=== PATIENT | male | born 2000 | race Two or more races ===

== ENCOUNTER 2024-12-24 16:46 | Emergency (ER) | payer MEDICAID, SELFPAY ==
[2024-12-24 16:51] VITALS: BMI 23.5
--- NOTE | 2024-12-24 16:52 | XR_ITS ---
Examination: Foot, left, 3 views Technique: AP, oblique, lateral views foot, 3 views Date and time of exam: December 24, 2024 1706 hours INDICATIONS: Laceration to the left side of the ankle today, ankle pain FINDINGS: No foot fracture No opaque foreign bodies Significant bunion deformity Soft tissue defects medial ankle IMPRESSION: No opaque foreign body seen
--- NOTE | 2024-12-24 16:55 | XR_ITS ---
Examination: Tibia-Fibula, left , 2 views Technique: Tibia-fibula AP lateral 2 views Date and time of exam: December 24, 2024 1706 hours INDICATIONS: Laceration to the ankle today, ankle pain FINDINGS: Shaft of the tibia-fibula are intact No fracture Soft tissue defects medial and posterior ankle IMPRESSION: Negative for opaque foreign body
--- NOTE | 2024-12-24 16:55 | XR_ITS ---
EXAMINATION: Ankle, left 3 views . Technique: Ankle AP, oblique, lateral 3 views Date and time of exam: December 24, 2024 7006 hours INDICATIONS: Laceration to the ankle today, ankle pain. FINDINGS: Soft tissue defects medial posterior ankle No fracture No opaque foreign body detected IMPRESSION: No fracture No opaque foreign body seen
--- NOTE | 2024-12-24 17:01 | PD.EDWOUND ---
ED Wound/Laceration-RME/HPI General Chief Complaint: Wound/Laceration Stated Complaint: Laceration to left leg from saw Time Seen by Provider: 12/24/24 18:00 Arrival date/time: 12/24/24 16:46 Limitations: no limitations RME / HPI RME / HPI narrative: 24 year old male with no significant medical history presents to the ED for evaluation of a left ankle injury sustained during a chainsaw accident. Patient reports that while cutting firewood, the chainsaw slipped and struck his left ankle. He immediately wrapped a sweater around his leg and presented to the ER for evaluation. Upon arrival, the patient describes pain at the injury site and reports a numbness sensation in the toes, though he denies any loss of movement in the toes or foot. No other injuries are reported. Last tetanus received is unknown. Related Data Previous Rx's ?Medication ?Instructions ?Recorded diphenhydramine HCl 25 mg capsule 25 mg PO Q8H PRN allergic symptoms 12/27/20 (Benadryl) #30 caps albuterol sulfate 90 mcg/actuation 2 puff inhalation QID PRN 03/27/21 aerosol inhaler shortness of breath or wheezing #8.5 grams ibuprofen 600 mg tablet 600 mg PO QID #30 tabs 05/09/22 ibuprofen 600 mg tablet 600 mg PO Q6H PRN fever or pain 02/15/23 #30 tabs cephalexin 500 mg capsule 500 mg PO Q6H 7 days #28 caps 12/24/24 diclofenac sodium 75 mg 75 mg PO BID #10 tabs 12/24/24 tablet,delayed release Allergies Allergy/AdvReac Type Severity Reaction Status Date / Time No Known Allergies Allergy Verified 12/24/24 16:50 Review of Systems Review of Systems Systems Reviewed: All systems reviewed, normal except as documented Past Medical History Past Medical History CARDIAC: Negative Congestive Heart Failure RESPIRATORY: Negative Chronic Obstructive Pulmonary Disease (COPD) GENITOURINARY: Negative Renal Disease ENDOCRINE: Negative Diabetes Mellitus Type 1 or Diabetes Mellitus Type 2 Surgical History SURGICAL: Positive Abdominal Surgery (appendectomy) Social History SMOKING STATUS: Unknown if ever smoked SUBSTANCE USE: does not use ED Exam General Limitations: Present no limitations General appearance: Present alert Head Head exam: Present atraumatic and normocephalic Eye Eye exam: Present normal appearance, PERRL and EOMI ENT ENT exam: Present normal exam, normal oropharynx and mucous membranes moist Neck Neck exam: Present normal inspection, full ROM and trachea midline Chest Chest inspection: Present normal inspection and symmetric chest wall rise Respiratory Respiratory exam: Present normal lung sounds bilaterally Cardiovascular Cardiovascular exam: Present regular rate, normal rhythm and normal heart sounds Abdominal Exam Abdominal exam: Present soft and normal bowel sounds Extremities Exam Extremities exam: Present full ROM and other (large deep laceration to the left ankle at the medial aspect measuring 6cm, no active bleeding otherwise no other evidence of injury ) Back Exam Back exam: Present normal inspection and full ROM Neurological Exam Neurological exam: Present alert, oriented X3 and CN II-XII intact Psychiatric Psychiatric exam: Present normal affect and normal mood Skin Skin exam: Present warm, dry, intact and normal color Course Quality Measures none Orders Category Date Time Status Crutches .NOW Care 12/24/24 19:11 Completed XR ankle comp LT min 3V Stat Exams 12/24/24 16:55 Completed XR foot comp LT min 3V Stat Exams 12/24/24 16:52 Completed XR tibia fibula LT 2V Stat Exams 12/24/24 16:55 Completed Lidocaine 1% 20 ml [Xylocaine 1% 20 ML] Med 12/24/24 17:24 Discontinued 20 ml .ROUTE .STK-MED ONE Lidocaine 1% 20 ml [Xylocaine 1% 20 ML] Med 12/24/24 17:32 Discontinued 20 ml INFL X1 ONE Morphine Inj Med 12/24/24 16:50 Discontinued 8 mg IVP X1 ONE TET,DIP/PERT AC (Adult)-Tdap [Boostrix Adult (Tdap) Med 12/24/24 16:56 Discontinued Vacc] 0.5 ml IMI .ONCE ONE cefTRIAXone/D5w 1gm IV premix [Rocephin/D5w 1gm IV Med 12/24/24 16:57 Discontinued premix] 1 gm in 50 ml IV X1 Vital Signs Vital signs: Vital Signs Pulse Rate 85 12/24/24 17:10 Respiratory Rate 19 12/24/24 17:10 Blood Pressure 86/51 L 12/24/24 17:10 Pulse Oximetry (%) 100 12/24/24 17:10 Oxygen Delivery Method Room Air 12/24/24 17:10 PROCEDURES: Laceration Laceration 1: Site: lower extremity Side (If applicable): left Size (cm): 6 Description: linear Depth: involves muscle layer (involves subcutaneous layer ) Local Anesthetic: lidocaine 1% Amount of anesthesia used (mL): 15 Pre-repair: wound explored, irrigated extensively and deep structures intact Skin layer closed with: nylon Suture size (cm): 3-0 Number of sutures: 7 Technique: simple, interrupted Subcutaneous layer closed with: vicryl Size: 3-0 Number of sutures: 2 Technique: simple, interrupted Wound / Laceration MDM Narrative MDM Narrative:: Sally Nevarez am scribing for and in the presence of Dr. Bell. Assessment: Possible tibial fracture, with concern for open fracture due to the mechanism of injury, consideration for foreign body injury in the wound. Plan: XR of the left ankle and tibia/fibula to assess for fracture, antibiotics to cover for possible infection, tetanus, pain control. If fracture is confirmed will transfer for further management. If no fracture, plan to expose the injury site and proceed with laceration repair. XR shows no bone involvement or fracture. The laceration was closed with sutures. Patient tolerated procedure well. Was given 1G of Rocephin in the ED, tetanus and Morphine. Advised to follow up with PCP in 2 days for wound evaluation and in 14 days to remove sutures. Patient data External records reviewed:: [facility] previous records (I reviewed ED Visit on 12/20/2023 for anxiety ) Clinical information provided by:: patient Social determinants that could affect healthcare access:: none Patient has the following chronic illnesses:: None How is presenting disease/condition affected by chronic disease/condition?: no chronic disease Evaluation data The following diagnostics were reviewed and interpreted by me:: lab results and radiology exam(s) Lab and/or radiology exams considered but not ordered:: None Interpretation Summary: Ordering Physician: Boris Zepeda MD Date of Service: 12/24/24 Procedure(s): XR foot comp LT min 3V Accession Number(s): [id number] cc: Boris Zepeda MD; Tu Hernandez MD~ Examination: Foot, left, 3 views Technique: AP, oblique, lateral views foot, 3 views Date and time of exam: December 24, 2024 1706 hours INDICATIONS: Laceration to the left side of the ankle today, ankle pain FINDINGS: No foot fracture No opaque foreign bodies Significant bunion deformity Soft tissue defects medial ankle IMPRESSION: No opaque foreign body seen Dictated By: Tu Hernandez MD Signed By: <Electronically signed by Tu Hernandez MD in OV> 12/24/24 1759 Ordering Physician: Boris Zepeda MD Date of Service: 12/24/24 Procedure(s): XR ankle comp LT min 3V Accession Number(s): [id number] cc: Boris Zepeda MD; Tu Hernandez MD~ EXAMINATION: Ankle, left 3 views . Technique: Ankle AP, oblique, lateral 3 views Date and time of exam: December 24, 2024 7006 hours INDICATIONS: Laceration to the ankle today, ankle pain. FINDINGS: Soft tissue defects medial posterior ankle No fracture No opaque foreign body detected IMPRESSION: No fracture No opaque foreign body seen Dictated By: Tu Hernandez MD Signed By: <Electronically signed by Tu Hernandez MD in OV> 12/24/24 1800 Ordering Physician: Boris Zepeda MD Date of Service: 12/24/24 Procedure(s): XR tibia fibula LT 2V Accession Number(s): [id number] cc: Boris Zepeda MD; Tu Hernandez MD~ Examination: Tibia-Fibula, left , 2 views Technique: Tibia-fibula AP lateral 2 views Date and time of exam: December 24, 2024 1706 hours INDICATIONS: Laceration to the ankle today, ankle pain FINDINGS: Shaft of the tibia-fibula are intact No fracture Soft tissue defects medial and posterior ankle IMPRESSION: Negative for opaque foreign body Dictated By: Tu Hernandez MD Signed By: <Electronically signed by Tu Hernandez MD in OV> 12/24/24 1801 Medications / Prescriptions Medications or Prescriptions considered but not ordered:: None Medication administrations:: Medication Administration History Discontinued Medications Diphtheria/Tetanus/Acell Pertussis (Diphth,Pertuss(Acell),Tet Vac 0.5 Ml Syr- Adult) 0.5 ml IMi .ONCE ONE Stop: 12/24/24 16:57 Last Admin: 12/24/24 17:04 Dose: 0.5 ml Documented By: ANDREW Ceftriaxone Sodium/Dextrose (Rocephin/D5w 1gm Iv Premix) 1 gm in 50 mls @ 100 mls/hr IV X1 ONE Stop: 12/24/24 17:26 Last Infusion: 12/24/24 17:35 Dose: Infused Documented By: Admin: 12/24/24 17:05 Dose: 100 mls/hr Documented By: VL Lidocaine HCl (Lidocaine Hcl 1% 20 Ml Vial) 20 ml INFL X1 ONE Stop: 12/24/24 17:33 Last Admin: 12/24/24 17:36 Dose: 20 ml Documented By: ANDREW Comments: ADMINISTERED BY DR. SHEKHAR ESCOBAR FOR SUTURE REPAIR Lidocaine HCl (Lidocaine Hcl 1% 20 Ml Vial) Confirm Administered Dose 20 ml .ROUTE .STK-MED ONE Stop: 12/24/24 17:25 Last Admin: 12/24/24 17:38 Dose: Not Given Documented By: VL Non-Admin Reason: Duplicate Medication on eMAR Morphine Sulfate (Morphine Sulf Inj 10 Mg/Ml Vial) 8 mg IVP X1 ONE Stop: 12/24/24 16:51 Last Admin: 12/24/24 17:03 Dose: 8 mg Documented By: VL See above Consultations Consultation(s) initiated? (list below): No Diagnosis Wound Differential Diagnosis: laceration and other (fracture, open fracture, closed fracture ) Most likely diagnosis given after review of the tests above:: Foot laceration Admission Indicated Admission indicated?: not indicated Admission Request Was there a request for admission?: No Disposition Plan Disposition Plan: Discharge Discharge Attestation Discharge Attestation: The patient and all family members were given an opportunity to ask questions and understood the discharge instructions. Discharge instructions specifically effects, indications for sooner follow up or return to the emergency department, and the expected course of current diagnosis. Patient condition: Stable Critical Care Time Critical Care Time Critical Care Time: Yes Total Critical Care Time (min.): 45 Attestation: The high probability of sudden, clinically significant deterioration in the patient's condition required the highest level of my preparedness to intervene urgently. The services I provided to this patient were to treat and/or prevent clinically significant deterioration. Services included the following: chart data review, reviewing nursing notes and/or old charts, documentation time, lifestyle consultant collaboration regarding findings and treatment options, medication orders and management, direct patient care, vital sign assessments and ordering, interpreting and reviewing diagnostic studies and lab tests. Aggregate critical care time includes only time during which I was engaged in work directly related to the patient's care, as described above, whether at bedside or elsewhere in the Emergency Department. It did not include time spent performing other reported procedures or the services of residents, students, nurses or physician assistants. Discharge Plan Plan Patient Disposition: HOME (Self Care) Prescriptions/Referrals Prescriptions/Med Rec: New cephalexin 500 mg capsule 500 mg PO Q6H 7 Days Qty: 28 0RF diclofenac sodium 75 mg tablet,delayed release (DR/EC) 75 mg PO BID Qty: 10 0RF No Action albuterol sulfate 90 mcg/actuation HFA aerosol inhaler 2 puff inhalation QID PRN (Reason: shortness of breath or wheezing) Qty: 8.5 0RF diphenhydramine HCl [Benadryl] 25 mg capsule 25 mg PO Q8H PRN (Reason: allergic symptoms) Qty: 30 0RF ibuprofen 600 mg tablet 600 mg PO QID Qty: 30 0RF ibuprofen 600 mg tablet 600 mg PO Q6H PRN (Reason: fever or pain) Qty: 30 0RF Problem List Clinical Impression: Foot laceration Patient/Caregiver Discharge Instructions Education Materials: ED Laceration, Foot: All Closures Additional Instructions: Follow-up with your doctor in 3 days to check on the wound and in 14 days to remove the stitches Make sure to take your antibiotics that was sent to your pharmacy Print Language: Pashto Stand Alone Forms: Xi Award Info., Patient Portal Info Letter
[2024-12-24] MEDS: MORPHINE SULF INJ 10 MG/ML VIAL 8 MG IVP (17:03)
[2024-12-24] MEDS: DIPHTH,PERTUSS(ACELL),TET VAC 0.5 ML SYR- ADULT IMi (17:04)
[2024-12-24] MEDS: cefTRIAXone/D5w 1gm IV premix 1 GM/50 ML BAG IV (17:05)
[2024-12-24 17:10] VITALS: BP 86/51; PULSE 85; RESP 19; O2SAT 100
[2024-12-24 17:33] VITALS: BP 105/61; PULSE 80; RESP 19; O2SAT 100
[2024-12-24] MEDS: LIDOCAINE HCL 1% 20 ML VIAL INFL (17:36)
[2024-12-24 18:00] VITALS: BP 108/66; PULSE 80; RESP 22; TEMP 36.8; O2SAT 100
[2024-12-24 19:28] VITALS: BP 115/64; PULSE 84; RESP 18; O2SAT 100
== END 2024-12-24 19:32 | disposition home or self-care (01) ==
LOC: SERX 18:49
PROVIDERS: Emergency Provider Emergency Medicine; PCP Family Medicine
DX: S91.012A Laceration without foreign body, left ankle, initial encounter (principal); S91.312A Laceration without foreign body, left foot, initial encounter; W29.3XXA Contact with powered garden and outdoor hand tools and machinery, initial encounter; Y93.89 Activity, other specified; Z23 Encounter for immunization
CPT/HCPCS: 12002; 73590; 73610; 73630; 90471; 90715; 99283; J0696; J2270; J3490